=== PATIENT | male | born 1970 | race African-American/Black ===

== ENCOUNTER 2018-07-13 19:17 | Emergency (ER) | payer MEDICAID ==
[~2018-07-13] VITALS: Ht 185.4 cm; Wt 91.0 kg
[~2018-07-13 19:17] MED LIST: ABX
[2018-07-13] MEDS ORDERED: SODIUM CHLORIDE 0.9% 1,000 ML IV ONE (21:13)
[2018-07-13] MEDS ORDERED: MORPHINE SULFATE 4 MG/ML CPJ (NOT FOR IM USE) IV STA (21:13)
[2018-07-13] MEDS ORDERED: MORPHINE SULFATE 2 MG/ML CPJ (NOT FOR IM USE) IV NR (21:30)
[2018-07-13 21:54] LABS: CLARITY URINE CLEAR (CLEAR); COLOR URINE YELLOW (YELLOW); KETONES URINE NEGATIVE (NEGATIVE); LEUKOCYTE ESTERASE URINE NEGATIVE (NEGATIVE); NITRITE URINE NEGATIVE (NEGATIVE); OCCULT BLOOD URINE 1+ (NEGATIVE); PROTEIN URINE 2+ (NEGATIVE); SPECIFIC GRAVITY URINE 1.011 (1.005-1.030); UROBILINOGEN URINE 0.2 E.U./dL (0.2-1.0)
[2018-07-13 22:07] LABS: BASOPHILS % 0.7 % (0.0-2.0); HEMATOCRIT. 38.2 % (42.0-52.0); HEMOGLOBIN. 12.6 g/dL (14.0-18.0); LYMPHOCYTES % 41.8 % (20.0-50.0); MEAN CORPUSCULAR HEMOGLOBIN 28.3 pg (28.0-32.0); MEAN CORPUSCULAR VOLUME 86.2 fL (80.0-94.0); MEAN PLATELET VOLUME 7.4 fl (7.4-10.4); MONOCYTES % 8.7 % (2.0-8.0); NEUTROPHILS % 47.8 % (40.0-76.0); PLATELET 243 x1000/uL (130-400); RED BLOOD CELL COUNT 4.44 mill/uL (4.7-6.1); RED CELL DISTRIBUTION WIDTH 18.5 % (11.6-14.6)
[2018-07-13 22:08] LABS: CHLORIDE 109 mEq/L (98-107)
[2018-07-13 22:16] LABS: PARTIAL THROMBOPLASTIN TIME 33.4 sec (23.4-31.0); PROTHROMBIN TIME 10.5 sec (9.1-11.1)
[2018-07-13] MEDS ORDERED: MORPHINE SULFATE 0.5MG/ML SYR 1ML(NEO) IV ONE (23:30)
[2018-07-13] MEDS ORDERED: MORPHINE SULFATE 10 MG/ML CPJ IV NR (23:45)
[2018-07-14] MEDS ORDERED: IOHEXOL-300 100 ML BOTTLE ONE (01:30)
[2018-07-14 01:40] VITALS: BP 121/80
== END 2018-07-14 01:40 | disposition home or self-care (01) ==
LOC: ER 19:17 → CANBEDREQ 07-14 02:35
DX: S80.212A Abrasion, left knee, initial encounter (principal); S80.211A Abrasion, right knee, initial encounter; M54.2 Cervicalgia; R51 Headache; M54.9 Dorsalgia, unspecified; F17.200 Nicotine dependence, unspecified, uncomplicated; F12.10 Cannabis abuse, uncomplicated; Z98.890 Other specified postprocedural states; V29.88XA Motorcycle rider (driver) (passenger) injured in other specified transport accidents, initial encounter; Y93.89 Activity, other specified; Y92.89 Other specified places as the place of occurrence of the external cause; Y99.8 Other external cause status
CPT/HCPCS: 36415; 70450; 71045; 71260; 72125; 73562; 74177; 80053; 81003; 82962; 83690; 85025; 85610; 85730; 86850; 86900; 86901; 96374; 96376; 99284; J2270; J7030; Q9967

== ENCOUNTER 2019-11-19 10:53 | Emergency (ER) | payer MEDICAID, OTHER ==
[~2019-11-19] VITALS: Ht 185.4 cm; Wt 81.0 kg
[2019-11-19] MEDS ORDERED: ONDANSETRON 4MG ODT PO ONE (11:30)
[2019-11-19] MEDS ORDERED: HYDROCODONE/ACETAMINOPHEN 5/325MG TABLET PO ONE (11:30)
[2019-11-19 13:50] VITALS: BP 122/75
== END 2019-11-19 14:04 | disposition home or self-care (01) ==
LOC: ER 10:53
DX: M25.461 Effusion, right knee (principal); M10.9 Gout, unspecified; I10 Essential (primary) hypertension; F12.10 Cannabis abuse, uncomplicated
CPT/HCPCS: 73562; 99283; L1830; Q0162